=== PATIENT | male | born 1985 | race Caucasian/White ===

== ENCOUNTER 2022-04-01 02:48 | Emergency (ER) | payer MEDICAID ==
[~2022-04-01] VITALS: Ht 172.7 cm; Wt 59.0 kg
--- NOTE | 2022-04-01 03:00 | NUR ---
Patient walked to ER with steady gait. NAD noted
--- NOTE | 2022-04-01 03:04 | NUR ---
Dr Mariscal at bedside MSE in progress
[2022-04-01] MEDS ORDERED: ONDANSETRON ODT 4 MG TAB.RAPDIS ONE (03:06)
[2022-04-01] MEDS ORDERED: HYDROCODONE/APAP 5-325MG TABLET ONE (03:07)
[2022-04-01 03:15] VITALS: BP 131/75
[2022-04-01] MEDS ORDERED: HYDROCODONE/APAP 5-325MG TABLET PO ONE (03:15)
[2022-04-01] MEDS ORDERED: ONDANSETRON ODT 4 MG TAB.RAPDIS SL ONE (03:15)
--- NOTE | 2022-04-01 03:15 | NUR ---
Patient discharged to home in stable condition. Written and verbal after care instructions given. Patient verbalizes understanding of instructions. Stressed follow up or return to ER for worsening s/s. Patient is a/ox4, NAD noted. Patient is able to walk with steady gait
== END 2022-04-01 03:16 | disposition home or self-care (01) ==
LOC: ER 03:05
DX: R51.9 Headache, unspecified (principal); T14.90XA Injury, unspecified, initial encounter; V79.9XXA Bus occupant (driver) (passenger) injured in unspecified traffic accident, initial encounter; Y92.410 Unspecified street and highway as the place of occurrence of the external cause
CPT/HCPCS: A4663; Q0162